=== PATIENT | female | born 1975 | race African-American/Black ===

== ENCOUNTER 2016-08-16 10:46 | Outpatient (CLI) | payer OTHER ==
--- NOTE | 2016-08-16 12:39 | Mammography Report ---
BILATERAL MAMMOGRAM: FINDINGS: Baseline examination. The breasts are almost entirely fat (<25% glandular). No mass, distortion, suspicious calcification, or skin change is seen. CAD was utilized. IMPRESSION: Negative mammogram. There is no mammographic evidence of malignancy. RECOMMENDATION: Follow-up per ACS guidelines. BI-RADS CATEGORY: 1 = Negative ACR BI-RADS MAMMOGRAPHIC CODES: 0 = Needs additional imaging evaluation; 1 = Negative; 2 = Benign; 3 = Probably benign; 4 = Suspicious; 5 = Malignant; 6 = Known biopsy-proven malignancy COMMENT: 1. Dense breast tissue, i.e., adenosis, fibrocystic changes, etc., may obscure an underlying neoplasm. 2. Approximately 10% of cancers are not detected with mammography. 3. A negative mammography report should not delay biopsy if a clinically suspicious mass is present. COMMENT: Patient follow-up letters are generated in [employer].
== END 2016-08-16 10:47 | disposition home or self-care (01) ==
LOC: MAMMO 10:46
PROVIDERS: ATTEND Internal Medicine
DX: Z12.31 Encounter for screening mammogram for malignant neoplasm of breast (principal)
CPT/HCPCS: 77067; G0202

== ENCOUNTER 2018-08-13 11:17 | Outpatient (CLI) | payer OTHER ==
--- NOTE | 2018-08-13 13:29 | XRay Report ---
CERVICAL SPINE, 5 VIEWS: History: Pain. Mild disc space narrowing and marginal spurring is identified at C5-6. The remaining levels are within normal limits. The facet joints are unremarkable. The oblique images demonstrate wide patency of the neural foramen bilaterally. No evidence for fracture, subluxation or bone lesion. IMPRESSION: Mild degenerative disc disease at C5-6.
--- NOTE | 2018-08-13 13:30 | XRay Report ---
BILATERAL KNEES, 3 VIEWS History: Pain. Findings: Within the right knee, there is moderate medial compartment joint space narrowing and mild retropatellar spurring. No evidence for fracture, bone lesion or osteochondral defect. Small joint effusion. Within the left knee, there is mild medial compartment joint space narrowing and mild retropatellar spurring. No evidence for fracture, bone lesion or osteochondral defect. No significant joint effusion. Impression: Mild to moderate osteoarthritis in both knees. The right knee appears slightly more affected.
== END 2018-08-13 11:18 | disposition home or self-care (01) ==
LOC: XRAY 11:17
PROVIDERS: ATTEND Nurse Practitioner Family
DX: M17.0 Bilateral primary osteoarthritis of knee (principal); M50.322 Other cervical disc degeneration at C5-C6 level; M62.838 Other muscle spasm
CPT/HCPCS: 72050

== ENCOUNTER 2020-08-01 11:44 | Outpatient (CLI) | payer OTHER ==
--- NOTE | 2020-08-01 13:53 | XRay Report ---
LUMBOSACRAL SPINE 5 VIEWS INDICATION: VENOUS INSUFFICIENCY,PAIN IN LEG,UNSPECIFIED. COMPARISON: None. IMPRESSION: Normal alignment. No significant discogenic DJD or facet arthropathy. The oblique image s demonstrate wide patency of the neural foramen bilaterally. No acute osseous or soft tissue abnorma lity. Signer Name: Donaldo Byrd Jr, MD Signed: 08/01/2020 1:49 PM Workstation Name: [id number]
== END 2020-08-01 11:45 | disposition home or self-care (01) ==
LOC: XRAY 11:44
PROVIDERS: ATTEND Surgery Vascular Surgery
DX: M79.606 Pain in leg, unspecified (principal)
CPT/HCPCS: 72110